=== PATIENT | female | born 1960 | race Caucasian/White ===

== ENCOUNTER → 2020-11-01 10:27 | Outpatient (BNVA) | payer SELFPAY | PROVIDERS: Referring Provider Surgery; Visit Provider Surgery | DX: K21.9 Gastro-esophageal reflux disease without esophagitis (principal); K92.1 Melena; R22.2 Localized swelling, mass and lump, trunk; Z20.822 Contact with and (suspected) exposure to COVID-19 | CPT/HCPCS: 87635 ==

== ENCOUNTER 2020-11-06 09:38 | Day surgery (SDC) | payer SELFPAY ==
[2020-11-03 14:10] VITALS: BMI 24.5
[2020-11-06 09:52] VITALS: BP 110/79; PULSE 72; RESP 16; TEMP 36.6; O2SAT 99
--- NOTE | 2020-11-06 10:09 | W.PM.OPSUD ---
Surgery/Procedure H&P Update DATE OF PROCEDURE: November 06, 2020 DATE H&P PERFORMED: 10/16/20 H&P UPDATE INFORMATION: I have reviewed H&P completed within last 30 days, I have examined patient prior to procedure and No changes to prior documentation PREOP DIAGNOSIS: Hematochezia, GERD, subcutaneous mass back PLANNED PROCEDURE: Operation Date: 11/06/20 11:10 Proposed Procedures p excision of back mass [id number] r22.2 k92.1 k21.9(Not Applicable) - Darron Steele MD s EGD(Not Applicable) - Darron Steele MD s Colonoscopy(Not Applicable) - Darron Steele MD
--- NOTE | 2020-11-06 10:13 | ANES.PREANE2 ---
Pre-Anesthetic Assessment Pre-Anesthetic Assessment: Height/Weight: Height 1.66 m Weight 68.039 kg Temp Pulse Resp BP Pulse Ox 97.9 F 72 16 110/79 99 11/06/20 09:52 11/06/20 09:52 11/06/20 09:52 11/06/20 09:52 11/06/20 09:52 Preop Diagnosis: Hematochezia, GERD, subcutaneous mass back Proposed Procedure: Operation Date: 11/06/20 11:10 Proposed Procedures p excision of back mass [id number] r22.2 k92.1 k21.9(Not Applicable) - Darron Steele MD s EGD(Not Applicable) - Darron Steele MD s Colonoscopy(Not Applicable) - Darron Steele MD Familial anesthetic complications: none Was Beta Suleiman taken within 24 hours: N/A Was Clonidine taken within 24 hours: N/A Last intake: Intake Last Liquid Date 11/05/20 Last Liquid Time 23:55 Last Solid Date 11/05/20 Last Solid Time 11:00 Social: Social History: No alcohol and No tobacco Exam: Pre-Anes Outpt Exam: alert, oriented x 3, clear to auscultation bilaterally and regular rate & rhythm Airway: Cervical ROM: WNL MP: 1 Dentition: Full GI: GI: GERD Neuropsych: Neuropsych: Neuropathy Anesthetic Plan: ASA status: 1 Anesthesia: MAC Risk of > 500 ml blood loss (7ml/kg in children): No PFSH Anesthesia PFSH: Medical History GERD (gastroesophageal reflux disease) Surgical History H/O section H/O foot surgery H/O: hysterectomy History of cholecystectomy 2019 History of colonoscopy 30+YRS History of repair of hiatal hernia at same time as bariatric surgery S/P biliopancreatic diversion with duodenal switch Social History Smoking and tobacco status: never smoked Alcohol intake: never Current gender identity: Female Female Reproductive History: Spontaneous abortions: No Data Anesthesia Cardiac Studies: No Data to Display
[2020-11-06] MEDS: sodium chloride 0.9% 1,000 ML 30 ML IV (10:20)
[2020-11-06 11:15] VITALS: BP 96/58; PULSE 69; RESP 12; TEMP 36.2; O2SAT 94
[2020-11-06 11:20] VITALS: BP 95/60; PULSE 69; RESP 15; O2SAT 93
[2020-11-06 11:25] VITALS: BP 112/61; PULSE 65; RESP 15; O2SAT 97
[2020-11-06 11:30] VITALS: BP 118/66; PULSE 67; RESP 14; TEMP 36.6; O2SAT 96
[2020-11-06 12:06] VITALS: BP 114/83; PULSE 56; RESP 16; TEMP 36.4; O2SAT 99
[2020-11-06] MEDS: HYDROcodone-acetaminophen 5-325 mg Tablet 1 TAB PO (12:35)
--- NOTE | 2020-11-06 14:27 | ANE.PACU2 ---
Inpatient post-anesthesia follow up: Airway intact: Yes Vital signs: Temperature 97.6 F Pulse Rate 56 Respiratory Rate 16 Blood Pressure 114/83 Pulse Oximetry 99 Oxygen Delivery Me thod Room Air Oxygen Flow Rate Fraction of Inspir ed Oxygen Hydration adequate: Yes Nausea and vomiting: No Pain level: 3 Mental status: Baseline
--- NOTE | 2020-11-06 16:20 | PM.OP ---
Operative Report Date of procedure: November 06, 2020 Pre-op Diagnosis: 1. GERD, history of duodenal switch 3 years ago in [place] 2. Hematochezia 3. Subcutaneous mass on the back measuring 3 x 3 cm Post-op Diagnosis: 1. Grade B esophagitis, postoperative changes from duodenal switch, redundant nonabsorbable sutures were removed with cold biopsy forceps 2. Severe melanosis coli 3. 5 mm and 3 mm sessile polyp in the ascending colon removed with cold biopsy forceps 4. Subcutaneous mass on the back Procedure Done: 1. Esophagogastroduodenoscopy without biopsy 2. Colonoscopy with polypectomy using cold biopsy forceps 3. Excision of subcutaneous mass on the back Specimens removed/disposition: 1. Ascending colon polyp x2 2. Subcutaneous mass on the back Surgeon: Darron Steele Anesthesia: MAC Condition: stable Disposition: PACU Procedure: The patient was taken to the operating room and placed in left lateral position under MAC and a bite block was placed. A gastroscope was introduced and advanced up to second portion of the duodenum and slowly withdrawn. Jejunum: There were redundant sutures at the anastomosis of the jejunum and the duodenum which were removed with cold biopsy forceps Duodenal bulb: Normal Stomach Fundus: Normal body: Normal Antrum: Normal Pylorus: Normal Esophagus GE junction: Z-line at 40 cm, grade B esophagitis Rest of esophagus: Normal Cecum: Severe melanosis coli Ascending colon: Severe melanosis coli, 5 mm and 3 mm sessile polyp removed with cold biopsy forceps Transverse colon: Severe melanosis coli Descending colon: Severe melanosis coli Sigmoid colon: Severe melanosis coli Rectum:: Fair melanosis coli, grade 1 internal hemorrhoids ETHAN:: Grade 1 internal hemorrhoids The area around the palpable mass on the back was prepped and draped in sterile manner. 1% lidocaine with 0.5% Marcaine was infiltrated around the subcutaneous mass which measured about 3 x 3 cm. A 3 cm longitudinal incision was made over the palpable mass, subcutaneous tissue was divided using electrocautery and the lipoma was dissected free from the surrounding subcutaneous tissue and underlying fascia and sent to pathology in formalin. Wound was irrigated saline and subcutaneous tissues approximated using running 3-0 Vicryl suture and skin was closed using running subcuticular 4-0 Monocryl suture and Dermabond. The patient was transferred to recovery room in stable condition.
== END 2020-11-06 12:40 | disposition home or self-care (01) ==
PROVIDERS: Visit Provider Surgery
PROC: (CPT 11403; principal; 2020-11-06 11:00)
PROC: 0DJ08ZZ Inspection of Upper Intestinal Tract, Via Natural or Artificial Opening Endoscopic (ICD-10-PCS; CPT 43235; 2020-11-06 11:00)
PROC: 0DJD8ZZ Inspection of Lower Intestinal Tract, Via Natural or Artificial Opening Endoscopic (ICD-10-PCS; CPT 45378; 2020-11-06 11:00)
DX: K92.1 Melena (principal); K21.9 Gastro-esophageal reflux disease without esophagitis; K20.90 Esophagitis, unspecified without bleeding; K63.89 Other specified diseases of intestine; D12.2 Benign neoplasm of ascending colon; D17.1 Benign lipomatous neoplasm of skin and subcutaneous tissue of trunk; K64.8 Other hemorrhoids
CPT/HCPCS: 11403; 12032; 43235; 45380; 88304; 88305; J0690; J2704; J3490; J7030

== ENCOUNTER 2020-11-29 12:33 | Outpatient (CLI) | payer SELFPAY ==
[2020-11-29] MEDS: iohexol 300 mg/mL 50 mL Btl PO (12:55)
--- NOTE | 2020-11-29 14:30 | CT_ITS ---
WS: [id number] CT ABDOMEN AND PELVIS WITH CONTRAST HISTORY: G89.18 - Other acute postprocedural pain TECHNIQUE: Imaging performed of the abdomen and pelvis with IV contrast. Single phase imaging of the abdomen. Coronal and sagittal reformats are submitted. All CT scans at [facility] use at least one of these dose optimization techniques: automated exposure control; mA and/or kV adjustment per patient size (includes targeted exams where dose is matched to clinical indication); or iterativ e reconstruction. IV CONTRAST: Omnipaque 300; 95 mL IV. Oral contrast: Yes. DLP: 1131.36 mGycm COMPARISON: None available. Lower thorax: Lung bases are clear. Heart is normal size. Small hiatal hernia. Bilateral breast impla nts. Liver/biliary system: Normal size with no intrahepatic dilatation. Gallbladder: Status post cholecystectomy. Pancreas: Normal size pancreas and pancreatic duct. No adjacent inflammation. Spleen: Normal size spleen. No mass or infarct. Adrenal glands: Normal. Right kidney: Normal size kidney. Cortical hypodensity in the mid cortex. 2 small to characterize. No renal obstruction. Left kidney: Normal. Aorta: Normal. Lymphadenopathy: None. Free fluid: None. GI tract: Prior gastric bypass. No GI tract obstruction. Mild thickening of the cecal wall and distal small bowel. No obstruction. Abdominal wall: Unremarkable abdominal wall. No hernia. Pelvis: Prior hysterectomy. Bones: Unremarkable. CT/CT abdomen pelvis w con* [id number] IMPRESSION: 1. Mild thickening of the distal small bowel and cecal mucosa. May be retained fecal material. If colonoscopy has not been performed this should be considere d to exclude underlying early neoplasm. 2. Prior cholecystectomy. 3. Prior gastric bypass. 4. No adenopathy or ascites.
[2020-11-29 14:37] LABS: Blood Urea Nitrogen 14 mg/dL (8-23)
[2020-11-29] MEDS: iohexol 300 mg/mL 100 mL Btl IV (14:52)
== END 2020-11-29 12:34 | disposition home or self-care (01) ==
LOC: RADWPI 12:34
PROVIDERS: Visit Provider Surgery
DX: G89.18 Other acute postprocedural pain (principal); Z98.84 Bariatric surgery status; Z90.49 Acquired absence of other specified parts of digestive tract
CPT/HCPCS: 74177; 82565; 84520; Q9967